=== PATIENT | female | born 1990 | race Caucasian/White ===

== ENCOUNTER 2019-09-24 06:09 | Emergency (ER) | payer MEDICAID ==
[~2019-09-24] VITALS: Ht 152.4 cm; Wt 70.2 kg
[2019-09-24] MEDS ORDERED: ONDANSETRON HCL 4MG/2ML INJ IV STA (08:59)
[2019-09-24] MEDS ORDERED: SODIUM CHLORIDE 0.9% 1,000 ML IV ONE ×2 (08:59→11:15)
[2019-09-24 09:34] LABS: HEMOGLOBIN. 12.9 g/dL (12.0-16.0); MEAN CORPUSCULAR HEMOGLOBIN 29.5 pg (28.0-32.0); MEAN PLATELET VOLUME 9.2 fl (7.4-10.4); PLATELET 173 x1000/uL (130-400); RED BLOOD CELL COUNT 4.37 mill/uL (4.2-5.4); RED CELL DISTRIBUTION WIDTH 14.2 % (11.6-14.6)
[2019-09-24 09:37] LABS: CHLORIDE 109 mEq/L (98-107)
[2019-09-24] MEDS ORDERED: KETOROLAC 15MG/ML VIAL IV ONE (10:30)
[2019-09-24] MEDS ORDERED: IOHEXOL-300 100 ML BOTTLE ONE (11:40)
[2019-09-24 12:01] LABS: PLATELET ESTIMATE NORMAL
[2019-09-24 12:02] LABS: CLARITY URINE CLEAR (CLEAR); COLOR URINE YELLOW (YELLOW); KETONES URINE TRACE (NEGATIVE); LEUKOCYTE ESTERASE URINE NEGATIVE (NEGATIVE); NITRITE URINE NEGATIVE (NEGATIVE); OCCULT BLOOD URINE NEGATIVE (NEGATIVE); PH URINE 7.5 (4.5-8.0); PROTEIN URINE NEGATIVE (NEGATIVE); SPECIFIC GRAVITY URINE 1.021 (1.005-1.030); UROBILINOGEN URINE 0.2 E.U./dL (0.2-1.0)
[2019-09-24 13:04] VITALS: BP 113/59
== END 2019-09-24 13:07 | disposition home or self-care (01) ==
LOC: ER 06:09
DX: J10.1 Influenza due to other identified influenza virus with other respiratory manifestations (principal); R50.9 Fever, unspecified; R11.2 Nausea with vomiting, unspecified
CPT/HCPCS: 36415; 71045; 74177; 80053; 81003; 81025; 85025; 87804; 96361; 96374; 96375; 99284; J1885; J2405; J7030; Q9967

== ENCOUNTER 2020-12-02 08:55 | Emergency (ER) | payer MEDICAID ==
[~2020-12-02] VITALS: Ht 152.4 cm; Wt 68.0 kg
[2020-12-02] MEDS ORDERED: IBUPROFEN 600MG TABLET PO STA (09:51)
[2020-12-02] MEDS ORDERED: IBUP-2029 PO (10:43)
[2020-12-02] MEDS ORDERED: CYCL25PO21 MT (10:43)
[2020-12-02 11:13] VITALS: BP 115/70
== END 2020-12-02 11:16 | disposition home or self-care (01) ==
LOC: ER 08:55
DX: S16.1XXA Strain of muscle, fascia and tendon at neck level, initial encounter (principal); M25.511 Pain in right shoulder; S20.219A Contusion of unspecified front wall of thorax, initial encounter; V49.49XA Driver injured in collision with other motor vehicles in traffic accident, initial encounter; Y93.89 Activity, other specified; Y92.488 Other paved roadways as the place of occurrence of the external cause
CPT/HCPCS: 71045; 73030; 81025; 99284; Z7610

== ENCOUNTER 2021-09-14 05:43 | Emergency (ER) | payer MEDICAID ==
[~2021-09-14] VITALS: Ht 152.4 cm; Wt 68.0 kg
[~2021-09-14 05:43] MED LIST: CYCL25PO15 MT; IBUP-2029 PO
[2021-09-14] MEDS ORDERED: MORPHINE SULFATE 4 MG/ML CPJ (NOT FOR IM USE) IV STA ×2 (06:04→15:35)
[2021-09-14] MEDS ORDERED: KETOROLAC 30MG/ML VIAL IV STA ×2 (06:04→15:34)
[2021-09-14] MEDS ORDERED: ONDANSETRON HCL 4MG/2ML INJ IV STA ×2 (06:04→15:35)
[2021-09-14] MEDS ORDERED: SODIUM CHLORIDE 0.9% 1,000 ML IV ONE (06:15)
[2021-09-14 06:23] LABS: BASOPHILS % 0.7 % (0.0-2.0); EOSINOPHILS % 1.2 % (0.0-5.0); HEMATOCRIT. 37.5 % (36.0-48.0); HEMOGLOBIN. 12.8 g/dL (12.0-16.0); LYMPHOCYTES % 23.2 % (20.0-50.0); MEAN CORPUSCULAR HEMOGLOBIN 29.7 pg (28.0-32.0); MEAN PLATELET VOLUME 8.6 fl (7.4-10.4); MONOCYTES % 5.1 % (2.0-8.0); NEUTROPHILS % 69.8 % (40.0-76.0); PLATELET 228 x1000/uL (130-400); RED BLOOD CELL COUNT 4.31 mill/uL (4.2-5.4); RED CELL DISTRIBUTION WIDTH 13.8 % (11.6-14.6)
[2021-09-14 06:29] LABS: CHLORIDE 107 mEq/L (98-107)
[2021-09-14 11:23] LABS: CLARITY URINE CLEAR (CLEAR); COLOR URINE YELLOW (YELLOW); KETONES URINE NEGATIVE (NEGATIVE); LEUKOCYTE ESTERASE URINE NEGATIVE (NEGATIVE); NITRITE URINE NEGATIVE (NEGATIVE); OCCULT BLOOD URINE TRACE (NEGATIVE); PH URINE 6.5 (4.5-8.0); PROTEIN URINE NEGATIVE (NEGATIVE); SPECIFIC GRAVITY URINE 1.012 (1.005-1.030); UROBILINOGEN URINE 0.2 E.U./dL (0.2-1.0)
[2021-09-14] MEDS ORDERED: KETOROLAC 15MG/ML VIAL IV NR (17:15)
[2021-09-14 18:12] VITALS: BP 126/74
== END 2021-09-14 18:14 | disposition home or self-care (01) ==
LOC: ER 05:43
DX: R10.11 Right upper quadrant pain (principal); Z20.822 Contact with and (suspected) exposure to COVID-19
CPT/HCPCS: 36415; 71045; 74177; 76705; 80053; 81003; 83690; 85025; 87426; 93005; 96361; 96374; 96375; 99285; J1885; J2270; J2405; Z7610; J7030

== ENCOUNTER 2025-07-14 17:02 | Emergency (ER) | payer OTHER, MEDICAID ==
[~2025-07-14] VITALS: Ht 152.4 cm; Wt 91.0 kg
[~2025-07-14 17:02] MED LIST changes: +IBUP-1455 PO; -IBUP-2029 PO
[2025-07-14 17:20] VITALS: BP 134/86; TEMP 36.9; O2SAT 100
[2025-07-14 17:23] VITALS: PULSE 99; RESP 18; O2SAT 100
[2025-07-14] MEDS ORDERED: METHOCARBAMOL 500MG TABLET PO ONE (19:30)
[2025-07-14] MEDS ORDERED: KETOROLAC 30MG/ML VIAL IM ONE (19:30)
== END 2025-07-14 21:47 | disposition left against medical advice (07) ==
LOC: ER 17:02
DX: S33.5XXA Sprain of ligaments of lumbar spine, initial encounter (principal); F12.90 Cannabis use, unspecified, uncomplicated; V49.9XXA Car occupant (driver) (passenger) injured in unspecified traffic accident, initial encounter; Y92.410 Unspecified street and highway as the place of occurrence of the external cause; Y93.89 Activity, other specified; Y99.8 Other external cause status; Y90.9 Presence of alcohol in blood, level not specified
CPT/HCPCS: 81025; 99282